=== PATIENT | female | born 1975 | race Hispanic/Latino ===

== ENCOUNTER 2019-11-14 14:10 | Inpatient (IN) | payer SELFPAY ==
[~2019-11-14] VITALS: Ht 160 cm; Wt 75.0 kg
[~2019-11-14 14:10] MED LIST: PROTONIX40 M2 PO; ZOFRAN ODT4 MG PO
--- NOTE | 2019-11-14 14:38 | NUR ---
PATIENT AMBULATED TO ROOM WITH STEADY GAIT AND PHYSICIAN AT BEDSIDE FOR EVAL
--- NOTE | 2019-11-14 14:45 | NUR ---
AMBULATORY WITH STEADY GAIT TO RESTROOM TO PROVIDE URINE SPECIMEN.
[2019-11-14 14:57] LABS: URINE BILIRUBIN - DIPSTICK NEGATIVE (NEGATIVE); URINE BLOOD DIPSTICK SMALL (NEGATIVE); URINE COLOR YELLOW; URINE GLUCOSE - DIPSTICK NEGATIVE (NEGATIVE); URINE KETONE NEGATIVE (NEGATIVE); URINE LEUK ESTERASE TRACE (NEGATIVE); URINE NITRITE - DIPSTICK NEGATIVE (Negative); URINE PH 6.5 (4.5-8.0); URINE PROTEIN - DIPSTICK NEGATIVE (NEG-TRACE); URINE SPECIFIC GRAVITY <=1.005; URINE UROBILINOGEN - DIPSTICK 0.2 E.U./dL (0.2)
[2019-11-14 15:15] LABS: HCG SERUM/URINE (NEG/POS) NEGATIVE (NEGATIVE)
[2019-11-14 15:18] LABS: HEMATOCRIT 36.3 % (37.0-47.0); HEMOGLOBIN 11.6 g/dl (12.0-16.0); IMMATURE GRANULOCYTES 0.5 % (0.0-5.0); MEAN CELL VOLUME 80.5 fL CALC (80.0-100.0); MEAN CORPUSCULAR HGB 25.7 pG CALC (26.0-32.0); NEUT# 13.5 thou/uL (2.00-7.15); RED BLOOD COUNT 4.51 mill/uL (4.20-5.60)
[2019-11-14 15:42] LABS: URINE SQUAMOUS EPITHELIAL CELL FEW EPI/hpf (0-FEW)
--- NOTE | 2019-11-14 15:45 | NUR ---
IV FLUIDS AND ABX INFUSING AT THIS TIME.
[2019-11-14 15:46] LABS: RED CELL DISTRI WIDTH 14.5 % (11.5-15.5)
[2019-11-14 15:56] LABS: ALBUMIN 4.4 g/dL (3.2-5.0); BUN 6 mg/dL (7-17); BUN/CREATININE RATIO 8 (12-20 (CALC)); CARBON DIOXIDE 22 mmol/l (22-30); CHLORIDE 102 mmol/l (95-108); CREATININE 0.7 mg/dL (0.5-1.0); GFR > 60 ML/MIN (>=60 (CALC)); GFR FOR AFR.AMER. > 60 ML/MIN (>=60 (CALC)); POTASSIUM 3.7 mmol/l (3.5-5.1); SGOT/AST 31 u/l (14-36); TOTAL PROTEIN 8.1 g/dL (6.3-8.2)
[2019-11-14 15:57] LABS: ALKALINE PHOSPHATASE 105 u/l (38-126); ANION GAP 14 (6-22 (CALC)); BILIRUBIN, TOTAL 1.1 mg/dL (0.0-1.4); SODIUM 134 mmol/l (137-146)
--- NOTE | 2019-11-14 16:45 | NUR ---
VANCO INFUSING AT THIS TIME. PT. TOLERATING WELL. CONSENTS SIGNED FOR LP.
--- NOTE | 2019-11-14 17:45 | NUR ---
LP PERFORMED. PT. TOLERATED WELL. SPECIMENS SENT TO LAB. PT. PLACED IN FLAT POSITION AT THIS TIME.
--- NOTE | 2019-11-14 18:45 | NUR ---
HEADACHE REMAINS AT 7/10 AT THIS TIME. CALL LIGHT REMAINS WITHIN REACH.
--- NOTE | 2019-11-14 19:23 | NUR ---
REPORT TO ILEANA REDDY.
--- NOTE | 2019-11-14 19:23 | NUR ---
REPORT RECEIVED FROM Deandra PAULSON RN IN ED
--- NOTE | 2019-11-14 19:44 | NUR ---
PT. TAKEN UP TO MED/SURG AT THIS TIME.
--- NOTE | 2019-11-14 19:55 | NUR ---
PT ARRIVES TO UNIT @ THIS TIME VIA STRETCHER, ACCOMPANIED BY Deandra PAULSON RN. ADMITTED TO ROOM 290. PT ORIENTED TO UNIT AND ROOM.
[2019-11-14 20:00] VITALS: BP 98/48
--- NOTE | 2019-11-14 22:08 | NUR ---
PHYSICAL ASSESMENT COMPLETE. VS TAKEN BY ASSISTANT PROFESSOR SCULPTURE @ 200 ASSESSED. PT IS HEMODYNAMICALLY STABLE @ THIS TIME. PT MEDICATED W/ PRN MORPHINE AND PRN TYLENOL FOR C/O THROBBING HEADACHE, 7/10 AND FEVER 100.4. SEE MAR. PLAN OF CARE REVIEWED W/ PT. PT DENIES QUESTIONS. VERBALIZES UNDERSTANDING. PT DENIES FURTHER NEEDS @ THIS TIME. ITEMS WITHIN REACH. BED LOCKED IN LOW POSITION W/ BEDRAILS UP X2. CALL SERRANO WITHIN REACH, AGREES TO CALL PRN.
[2019-11-14 23:45] VITALS: BP 104/58
--- NOTE | 2019-11-15 02:03 | NUR ---
PT APPEARS TO BE SLEEPING COMFORTABLY. NO APPARENT DISTRESS. RESPIRATIONS REGULAR AND UNLABORED. ITEMS REMAIN WITHIN. BED REAMAINS LOCKED IN LOW POSITION W/ BEDRAILS UP X2. CALL SERRANO REMAINS WITHIN REACH.
[2019-11-15 04:00] VITALS: BP 104/66
--- NOTE | 2019-11-15 04:30 | NUR ---
PHYSICAL ASSESMENT REMAINS UNCHANGED. VS TAKEN BY IVA @ 0400 ASSESED. PT AFEBRILE. REMAINS HEMODYNAMICALLY STABLE. AM LAB WORK DRAWN PERIPHERALLY. MEDICATED W/ PRN MORPHINE AND APAP FOR C/O THROBBING HEADACHE. SEE MAR. PT DENIES FURTHER NEEDS @ THIS TIME. ITEMS REMAIN WITHIN REACH. BED REMAINS LOCKED IN LOW POSITION W/ BEDRAILS UP X2. CALL SERRANO REMAINS WITHIN REACH, AGREES TO CALL PRN.
[2019-11-15 05:31] LABS: HEMATOCRIT 32.7 % (37.0-47.0); HEMOGLOBIN 10.3 g/dl (12.0-16.0); IMMATURE GRANULOCYTES 0.4 % (0.0-5.0); MEAN CORPUSCULAR HGB 26.1 pG CALC (26.0-32.0); MEAN CORPUSCULAR HGB CONC 31.5 g/dL CAL (32.0-36.0); NEUT# 11.39 thou/uL (2.00-7.15); RED BLOOD COUNT 3.94 mill/uL (4.20-5.60); RED CELL DISTRI WIDTH 14.6 % (11.5-15.5)
[2019-11-15 06:04] LABS: ALKALINE PHOSPHATASE 85 u/l (38-126); ANION GAP 10 (6-22 (CALC)); BILIRUBIN, TOTAL 0.7 mg/dL (0.0-1.4); BUN 5 mg/dL (7-17); BUN/CREATININE RATIO 9 (12-20 (CALC)); CARBON DIOXIDE 22 mmol/l (22-30); CHLORIDE 108 mmol/l (95-108); CREATININE 0.6 mg/dL (0.5-1.0); GFR > 60 ML/MIN (>=60 (CALC)); GFR FOR AFR.AMER. > 60 ML/MIN (>=60 (CALC)); POTASSIUM 3.8 mmol/l (3.5-5.1); SGOT/AST 24 u/l (14-36); SODIUM 136 mmol/l (137-146)
[2019-11-15 06:19] LABS: ALBUMIN 3.1 g/dL (3.2-5.0); C-REACTIVE PROTEIN 18.1 mg/dL (0-0.9); TOTAL PROTEIN 6.3 g/dL (6.3-8.2)
[2019-11-15 08:30] VITALS: BP 124/60
--- NOTE | 2019-11-15 08:30 | NUR ---
PT RESTING IN BED, NO SIGNS OF DISTRESS NOTED, RESP EVEN AND UNLABORED. PT STATES SHE FEELS HER HEADACHE RETURNING. DISCUSSED POC, ASSESSMENT COMPLETED, CALL LIGHT IN REACH,CONTINUE TO MONITOR.
--- NOTE | 2019-11-15 09:29 | NUR ---
PT RESTING IN BED WITH WASHCLOTH TO HER HEAD, PT MEDICATED PER MAR FOR PAIN. RESP EVEN AND UNLABORED. CALL LIGHT IN REACH,CONTINUE TO MONITOR.
[2019-11-15 11:23] VITALS: BP 110/61
--- NOTE | 2019-11-15 11:30 | NUR ---
MITCHELL LUJAN PRESENTS WITH POSSIBLE MENINGITIS DUE TO COVID 19. VANCOMYCIN ORDERED FOR PHARMACY TO DOSE. T = 97.7 f, wbc = 13.5 THOUS/UL, SCR = 0.6 MG/DL, CRCL = 117 ML/MIN START VANCO 1250MG IV BID @ 0900 AND 2100. DRAW TROUGH 30 MIN B4 4TH DOSE ON 11/15 @ 2029. GOAL TROUGH IS BETWEEN 15-20 MCG/ML. PHARMACY WILL CONTINUE TO FOLLOW AND ADVISE NEEDED.
--- NOTE | 2019-11-15 11:35 | NUR ---
PT RETURNING FROM BATHROOM, URINE CULTURE OBTAINED. PT STARTED HER MENSES, PADS PROVIDED. PT CONTINUES TO C/O HEADACHE MEDICATED WITH LORTAB. DECLINED LUNCH TRAY, WATER PROVIDED. CALL LIGHT IN REACH,CONTINUE TO MONITOR.
[2019-11-15 15:26] VITALS: BP 92/48
--- NOTE | 2019-11-15 16:16 | NUR ---
PT RESTING IN BED STATES HER HEADACHE IS RETURNING, PT MEDICATED WITH TYELNOL AT THIS TIME. WILL RETURN WITH LORTAB IF PAIN CONTINUES. CALL LIGHT IN REACH,CONTINUE TO MONITOR.
[2019-11-15 19:00] VITALS: BP 116/54
--- NOTE | 2019-11-15 21:02 | NUR ---
PT MEDICATED ORDERS PROVIDE, ANTIBIOTIC THERAPY ADMINISTERED AT THIS TIME AND TYLENOL FOR BRAND AND FEVER 100.1 PT DENIES COUGHING MUCH/DENIES N/V. APPEARS TO BE STABLE AT THIS TIME. BREATHING IS NOT LABORED, NEURO'S INTACT. DENIES SOB.
[2019-11-15 23:45] VITALS: BP 104/53
--- NOTE | 2019-11-16 00:05 | NUR ---
PT MEDICATED W/IV ANTIBIOTIC THERAPY AND FOR PAIN IN HEAD 7/10 ON PAIN SCALE. PT IS AFEBRILE AT THIS TIME. DENIES ANY OTHER NEEDS. PT ENCOURAGED TO CALL NEEDS ARISE.
[2019-11-16 03:56] VITALS: BP 94/57
--- NOTE | 2019-11-16 04:24 | NUR ---
PT SLEEPING, AWOKE TO MY ENTERING ROOM. IV PUMP CLEARED. NO S/O DISTRESS NOTED. PT DENIES ANY NEEDS. CALL LIGHT AT SIDE.
--- NOTE | 2019-11-16 08:00 | NUR ---
PT RESTING IN BED, CONTINUES WITH C/O HEADACHE, PT MEDICATED PER MAR. PT ALERT AND ORIENTED X3, DISCUSSED POC. RESP EVEN AND UNLABORED ON RA. ASSESSMENT COMPLETED. CALL LIGHT IN REACH,CONTINUE TO MONITOR.
[2019-11-16 08:07] VITALS: BP 99/60
[2019-11-16 11:57] VITALS: BP 95/58
--- NOTE | 2019-11-16 11:58 | NUR ---
PT RESTING IN BED, VANCO INFUSION COMPLETED. IV ROCEPHIN STARTED. PT VOICES NO NEEDS OR COMPLAINTS AT THIS TIME. CALL LIGHT IN REACH,CONTINUE TO MONITOR.
--- NOTE | 2019-11-16 14:36 | NUR ---
PT MEDICATED FOR HEADACHE, PT ALSO C/O NAUSEA AND CONSTIPATION. PT MEDICATED PER AUG. CALL LIGHT IN REACH,CONTINUE TO MONITOR.
--- NOTE | 2019-11-16 15:30 | NUR ---
NOTIFIED OF COVID SWAB RESULTS. NEW ORDERS RECEIVED
[2019-11-16 16:10] VITALS: BP 115/55
--- NOTE | 2019-11-16 17:40 | NUR ---
PT RESTING IN BED, DISCUSSED RESULTS OF COVID SWAB AND MD ORDERS TO RETEST BLOOD AND SWAB. PT VERBALIZED UNDERSTANDING AND AGREES. PT SWABBED AND LABS OBTAINED, PT TOLERATED WELL. CALL LIGHT IN REACH,CONTINUE TO MONITOR.
[2019-11-16 19:02] VITALS: BP 133/70
--- NOTE | 2019-11-16 20:41 | NUR ---
LABS DRAWN FOR VANCO TROUGH AND SENT TO LAB VIA [facility]. WILL AWAIT RESULTS FOR ADMINISTRATION OF IV ANTIBIOTIC VANCOMYCIN. PT TOLERATED WELL, REPORTS HAVING HEADACHE 5/10 ON PAIN SCALE. WILL FOLLOW-UP WITH PAIN MEDICATION AVAILABLE. PT DENIES ANY OTHER NEEDS AT THIS TIME. PT ENCOURAGED TO CALL NEEDS ARISE.
--- NOTE | 2019-11-16 21:45 | NUR ---
[facility] 6L, PT MEDICATED ORDERS PROVIDE AT THIS TIME. PT PROVIDED REFRESHED ICEWATER AND APPLE JUICE PER REQUEST, DENIED ANY OTHER NEEDS. PT UP MOVING AROUND THE ROOM I LEFT. ENCOURAGED TO CALL NEEDS ARISE.
--- NOTE | 2019-11-16 23:41 | NUR ---
ANTIBIOTIC THERAPY ADMINISTERED AT THIS TIME. PT AWOKE TO MY ENTERING ROOM. DENIES ANY NEEDS, NO S/O DISTRESS NOTE.D
[2019-11-16 23:45] VITALS: BP 103/57
[2019-11-17 04:23] VITALS: BP 110/60
--- NOTE | 2019-11-17 04:45 | NUR ---
ATTEMPTS TO DRAW BLOOD FOR LABS. UNABLE TO OBTAIN. OTHER NURSE ON MS FLOOR ATTEMPTED ALSO. WILL NOTIFY LAB THAT PT STILL NEEDS DRAWN.
[2019-11-17 05:54] LABS: BASO% 1 % (0-3); EOS% 2 % (0-8); HEMATOCRIT 28.3 % (37.0-47.0); HEMOGLOBIN 9.3 g/dl (12.0-16.0); IMMATURE GRANULOCYTES 0.2 % (0.0-5.0); LYMPH% 20 % (15-41); MEAN CELL VOLUME 81.3 fL CALC (80.0-100.0); MEAN CORPUSCULAR HGB 26.7 pG CALC (26.0-32.0); MEAN CORPUSCULAR HGB CONC 32.9 g/dL CAL (32.0-36.0); MONO% 7 % (2-13); NEUT# 4.28 thou/uL (2.00-7.15); NEUT% 70 % (42-76); PLATELET COUNT 213 thou/uL (130-400); RED BLOOD COUNT 3.48 mill/uL (4.20-5.60); RED CELL DISTRI WIDTH 14.9 % (11.5-15.5)
[2019-11-17 06:24] LABS: ALKALINE PHOSPHATASE 112 u/l (38-126); ANION GAP 9 (6-22 (CALC)); BUN 3 mg/dL (7-17); BUN/CREATININE RATIO 5 (12-20 (CALC)); CARBON DIOXIDE 24 mmol/l (22-30); CHLORIDE 107 mmol/l (95-108); CREATININE 0.5 mg/dL (0.5-1.0); GFR > 60 ML/MIN (>=60 (CALC)); GFR FOR AFR.AMER. > 60 ML/MIN (>=60 (CALC)); POTASSIUM 3.8 mmol/l (3.5-5.1); SGOT/AST 22 u/l (14-36); SODIUM 136 mmol/l (137-146); TOTAL PROTEIN 6.2 g/dL (6.3-8.2)
[2019-11-17 06:35] LABS: BILIRUBIN, TOTAL 0.2 mg/dL (0.0-1.4); C-REACTIVE PROTEIN 15.9 mg/dL (0-0.9)
[2019-11-17 07:50] VITALS: BP 122/69
--- NOTE | 2019-11-17 08:05 | NUR ---
PT PRESENTS WITH COVID-19, POSSIBLE MENINGITIS. VANCO ORDERED FOR PHARMACY TO DOSE. PT WAS RECEIVING 1250MG IV Q12H. GOAL TROUGH = 15-20 MCG/ML. TROUGH 30 MIN B4 4TH DOSE WAS 6 MCG/ML. INREASE DOSE TO 1500MG IV Q8H STARTING TODAY @ 0900. DRAW VANCO TROUGH 30 MIN B4 4TH DOSE ON 11/17 @ 0830. PHARMACY WILL CONTINUE TO FOLLOW.
--- NOTE | 2019-11-17 09:00 | NUR ---
PT ALERT AND ORIENTED X 3. LUNGS CLEAR, RA. HEADACHE PAIN CONTINUES, MEDS PROVIDED FOR SAME. MILK OF MAGNESIA PROVIDED FOR NO BM SINCE SUNDAY. SHOWERED.
[2019-11-17 11:28] VITALS: BP 132/75
--- NOTE | 2019-11-17 13:00 | NUR ---
PT PROVIDED ABX ORDERED, DOES NOT APPEAR TO BE IN ANY DISTRESS. PT RECEIVED PAIN MED EARLIER FOR HEADACHE PAIN.
[2019-11-17 15:05] VITALS: BP 102/63
--- NOTE | 2019-11-17 18:48 | NUR ---
PT CONTINUES WITH ABX, NO CHANGE IN STATUS.
[2019-11-17 21:09] VITALS: BP 126/74
--- NOTE | 2019-11-17 21:16 | NUR ---
ASSESSMENT COMPLETED. NO DISTRESS NOTED. UPDATED ON POC. ENCOURAGED TO CALL FOR ANY NEEDS. CALL LIGHT IS IN REACH.
--- NOTE | 2019-11-17 22:08 | NUR ---
PT. C/O BRAND AND MEDICATED WITH ORDERED PRN LORTAB, WILL REASSESS.
[2019-11-18] VITALS (7 sets, daily range): BP systolic 100–147; BP diastolic 51–75
--- NOTE | 2019-11-18 00:30 | NUR ---
VSS. NO DISTRESS NOTED; DENIES NEEDS/PAIN. ENCOURAGED TO CALL FOR ANY NEEDS. CALL LIGHT IS IN REACH.
--- NOTE | 2019-11-18 06:00 | NUR ---
PT. C/O BRAND AND MEDICATED WITH ORDERED PRN LORTAB, WILL REASSESS.
--- NOTE | 2019-11-18 09:00 | NUR ---
PT ALERT AND ORIENTED X 3. LUNGS CLEAR, RA. PT NO BM SINCE SUNDAY, MIRALAX ORDER GOTTEN AND MED PROVIDED. PT AMBULATORY WITHOUT DIFFICULTY. PT CONTINUES WITH TOP OF HEAD HEADACHE, MEDICATED NECESSARY.
--- NOTE | 2019-11-18 10:07 | NUR ---
PT screen for 11/17/19 No PT needs at this time. We will see the patient per medical recommnedations if needed.
--- NOTE | 2019-11-18 13:00 | NUR ---
PT SEEN BY DR MACIEL AND LORIE SPRAGUE THIS MORNING, NO SIGNIFICANT CHANGES TO PLAN OF CARE. PT DENIES SHORTNESS OF BREATH, CONTNUES WITH PERSISTENT HEADACHE.
--- NOTE | 2019-11-18 14:15 | NUR ---
MITCHELL LUJAN is a 43 F who presents with MENINGITIS AND COVID 19 . TROUGH IS 13 CONTINUE VANCOMYCIN 1500MG Q8H. NEXT TROUGH WILL BE 11/20/19 @0809
--- NOTE | 2019-11-18 17:23 | NUR ---
ABX CONTINUE, VANCO TROUGH WNL. NO HEADACHE REPORTED AT THIS TIME.
--- NOTE | 2019-11-18 20:18 | NUR ---
PT. SITTING UP IN BED ON TELEPHONE. NO DISTRESS NOTED; UPDATED ON POC. DENIES NEEDS/PAIN. ASSESSMENT COMPLETED. IV SITE PATENT AND INFUSING ORDERED IVF WELL. FRESH WATER PROVIDED. ENCOURAGED TO CALL FOR ANY NEEDS.
--- NOTE | 2019-11-18 23:35 | NUR ---
RESTING IN BED WITH NO DISTRESS NOTED;DENIES NEEDS/PAIN. VSS. ENCOURAGED TO CALL FOR ANY NEEDS.
[2019-11-19 04:15] VITALS: BP 139/77
--- NOTE | 2019-11-19 05:00 | NUR ---
PT. RESTING IN BED WITH NO DISTRESS NOTED; DENIES NEEDS/PAIN. ENCOURAGED TO CALL FOR ANY NEEDS. CALL LIGHT IS IN REACH.
--- NOTE | 2019-11-19 06:45 | NUR ---
REPORT RECEIVED FROM YAN TEJEDA. CARE ASSUMED.
[2019-11-19 07:15] VITALS: BP 140/78
--- NOTE | 2019-11-19 07:15 | NUR ---
PT RESTING IN BED AWAKE. PT IS ALERT AND ORIENTED X3. SHIFT ASSESSMENT COMPLETED AT THIS TIME. IV PATENT X1. CALL LIGHT IN REACH. WILL CONTINUE TO MONITOR.
--- NOTE | 2019-11-19 10:15 | NUR ---
Shey HUYNH APRN AT BEDSIDE
[2019-11-19 11:21] VITALS: BP 104/79
--- NOTE | 2019-11-19 12:08 | NUR ---
PT SITTING UP IN BED EATING LUNCH. RESP ARE EVEN AND UNLABORED. NO DISTRESS NOTED. CALL LIGHT IN REACH. WILL CONTINUE TO MONITOR.
--- NOTE | 2019-11-19 13:15 | NUR ---
DISCHARGE INSTRUCTIONS REVIEWED WITH PATIENT. PATIENT VERBALIZED UNDERSTANDING. #20 REMOVED FROM LFA. CATH TIP INTACT PT TOLERATED WELL. PT CALLING FOR A RIDE. WILL NOTIFY NURSING STATION WHEN READY.
--- NOTE | 2019-11-19 13:29 | NUR ---
Discharge instructions given. Patient verbalizes understanding of same. Discharged in stable condition via Wheelchair to Home with family. All belongings sent with pt.
== END 2019-11-19 13:29 | disposition home or self-care (01) | DRG 97 ==
LOC: ED 14:10 → ED-I 17:45 → ED 17:57 → MS2 17:58 → ED-I 17:58 → MS2 18:04
PROVIDERS: Nurse Practitioner Family; Student in an Organized Health Care Education/Training Program; ADMIT Internal Medicine; ATTEND Internal Medicine
PROC: 009U3ZX Drainage of Spinal Canal, Percutaneous Approach, Diagnostic (ICD-10-PCS; principal; 2019-11-14)
DX: G03.0 Nonpyogenic meningitis (principal); U07.1 COVID-19; K59.00 Constipation, unspecified
CPT/HCPCS: J1650; J3370

== ENCOUNTER 2021-08-20 10:23 | Emergency (ER) | payer SELFPAY ==
[~2021-08-20] VITALS: Ht 160 cm; Wt 72.0 kg
[2021-08-20 12:51] LABS: URINE BILIRUBIN - DIPSTICK NEGATIVE (NEGATIVE); URINE BLOOD DIPSTICK NEGATIVE (NEGATIVE); URINE COLOR YELLOW; URINE GLUCOSE - DIPSTICK NEGATIVE (NEGATIVE); URINE KETONE NEGATIVE (NEGATIVE); URINE PROTEIN - DIPSTICK NEGATIVE (NEG-TRACE); URINE SPECIFIC GRAVITY <=1.005; URINE UROBILINOGEN - DIPSTICK 0.2 E.U./dL (0.2)
[2021-08-20 12:53] LABS: URINE LEUK ESTERASE SMALL (NEGATIVE); URINE NITRITE - DIPSTICK NEGATIVE (Negative)
[2021-08-20 13:05] LABS: URINE SQUAMOUS EPITHELIAL CELL FEW EPI/hpf (0-FEW)
[2021-08-20 13:11] LABS: IMMATURE GRANULOCYTES 0.3 % (0.0-5.0); MEAN CELL VOLUME 83.4 fL CALC (80.0-100.0); MEAN CORPUSCULAR HGB 26.2 pG CALC (26.0-32.0); MEAN CORPUSCULAR HGB CONC 31.4 g/dL CAL (32.0-36.0); NEUT# 16.39 thou/uL (2.00-7.15); RED BLOOD COUNT 4.51 mill/uL (4.20-5.60); RED CELL DISTRI WIDTH 14.5 % (11.5-15.5)
[2021-08-20 13:12] LABS: HEMATOCRIT 37.6 % (37.0-47.0); HEMOGLOBIN 11.8 g/dl (12.0-16.0)
[2021-08-20 13:27] VITALS: BP 134/73
[2021-08-20 13:30] VITALS: BP 133/76
[2021-08-20 13:35] LABS: ALKALINE PHOSPHATASE 112 u/l (38-126); ANION GAP 15 (6-22 (CALC)); BUN 7 mg/dL (7-17); BUN/CREATININE RATIO 10 (12-20 (CALC)); CARBON DIOXIDE 24 mmol/l (22-30); CHLORIDE 100 mmol/l (95-108); CREATININE 0.7 mg/dL (0.5-1.0); GFR > 60 ML/MIN (>=60 (CALC)); GFR FOR AFR.AMER. > 60 ML/MIN (>=60 (CALC)); POTASSIUM 3.4 mmol/l (3.5-5.1); SGOT/AST 26 u/l (14-36); SODIUM 136 mmol/l (137-146)
[2021-08-20 13:41] LABS: ALBUMIN 4.4 g/dL (3.2-5.0); BILIRUBIN, TOTAL 1.7 mg/dL (0.0-1.4); TOTAL PROTEIN 8.7 g/dL (6.3-8.2)
[2021-08-20] MEDS ORDERED: OMNICEF300 M1 PO (15:00)
[2021-08-20 15:23] VITALS: BP 105/62
[2021-08-20 15:30] VITALS: BP 107/65
[2021-08-20 15:50] VITALS: BP 104/68
[2021-08-20 15:53] VITALS: BP 107/65
== END 2021-08-20 15:52 | disposition home or self-care (01) | DRG 690 ==
LOC: ED 10:23
PROVIDERS: Family Medicine
DX: N39.0 Urinary tract infection, site not specified (principal); B96.20 Unspecified Escherichia coli [E. coli] as the cause of diseases classified elsewhere
CPT/HCPCS: Q9967